=== PATIENT | female | born 1970 | race Caucasian/White ===

== ENCOUNTER 2016-12-31 08:04 | Emergency (ER) | payer SELFPAY | END 2016-12-31 10:15 | disposition home or self-care (01) | LOC: D.ER 08:04 | DX: L97.819 Non-pressure chronic ulcer of other part of right lower leg with unspecified severity (principal); F17.200 Nicotine dependence, unspecified, uncomplicated; F12.10 Cannabis abuse, uncomplicated ==

== ENCOUNTER → 2020-03-31 08:44 | Outpatient (CLI) | payer MEDICARE, OTHER | END | disposition home or self-care (01) | LOC: D.CT 08:44 | PROVIDERS: ATTEND Family Medicine | DX: R10.9 Unspecified abdominal pain (principal) ==

== ENCOUNTER 2021-03-08 14:00 | Outpatient (CLI) | payer MEDICARE | END 2021-03-08 23:59 | disposition home or self-care (01) | LOC: D.MAMMO 14:00 | PROVIDERS: ATTEND Nurse Practitioner Family | DX: N63.20 Unspecified lump in the left breast, unspecified quadrant (principal) ==